=== PATIENT | female | born 1985 | race Caucasian/White ===

== ENCOUNTER 2023-09-16 10:03 | Outpatient (OUT) | payer OTHER, SELFPAY ==
--- NOTE | 2023-09-16 10:04 | US_ITS ---
[address] [address] Patient Name: MARY BROWN MRN: [id number] date: 1985 Sex: F Assigned Patient Location: Current Patient Location: Accession/Order Number: [id number] Exam Date: 09/16/2023 10:04 Report Date: 09/16/2023 10:59 At the request of: DAISY CARDOSO Procedure: US pelvis w/ transvaginal EXAMINATION: US pelvis w/ transvaginal HISTORY: IRREGULAR UTERINE BLEEDING COMPARISON: No relevant comparison available. TECHNIQUE: Transabdominal and/or transvaginal sonographic examination was performed as indicated by examination type. FINDINGS: UTERUS: Normal size and appearance. Uterus size: 9.5 x 4.7 x 5.6 cm ENDOMETRIUM: Normal homogeneous appearance. Endometrial thickness: 8 mm RIGHT OVARY: Normal size and appearance. Duplex Doppler demonstrates normal waveform and flow; resistive index 0.5. Ovary size: 2.6 x 1.2 x 3.0 cm LEFT OVARY: Normal size and appearance. Duplex Doppler demonstrates normal waveform and flow; resistive index 0.7. Ovary size: 2.9 x 1.5 x 1.9 cm CUL-DE-SAC: Unremarkable. No significant free fluid. BLADDER: Unremarkable. OTHER: None. US/US pelvis w/ transvaginal IMPRESSION: 1. Normal pelvic ultrasound. No suspicious findings. Electronically authenticated by: DISHA SILVA Date: 09/16/2023 10:59
== END 2023-09-16 10:04 | disposition home or self-care (01) ==
LOC: US 10:03
PROVIDERS: Visit Provider Obstetrics & Gynecology
DX: N92.6 Irregular menstruation, unspecified (principal)
CPT/HCPCS: 76830; 76856